=== PATIENT | male | born 1990 | race American Indian/Alaskan Native ===

== ENCOUNTER 2017-07-13 18:00 | Emergency (ER) | payer OTHER ==
[2017-07-13] MEDS ORDERED: TYLENOL #3 PO ONE (22:00)
[2017-07-13] MEDS ORDERED: ZOFRAN ODT PO ONE (22:00)
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
[2017-07-13 22:15] LABS: Basophils % (Auto) 0.5 % (0.0-1.8); Eosinophils # (Auto) 0.2 K/mm3 (0.0-0.4); Eosinophils % (Auto) 2.4 % (0.0-4.3); Hematocrit 43.4 % (35.5-45.6); Hemoglobin 14.4 gm/dl (11.8-15.2); Lymphocytes % (Auto) 27.5 % (13.4-35.0); Mean Corpuscular HGB Conc 33 % (32-34); Mean Corpuscular Hemoglobin 31 pg (28-32); Mean Corpuscular Volume 94 fl (84-94); Monocytes # (Auto) 0.4 K/mm3 (0.0-0.8); Monocytes % (Auto) 5.7 % (0.0-7.3); Platelet Count 202 K/mm3 (140-440); Red Blood Count 4.61 M/mm3 (3.65-5.03); Red Cell Distribution Width 13.5 % (13.2-15.2)
[2017-07-13 22:28] LABS: BUN/Creatinine Ratio 13; Blood Urea Nitrogen 8 mg/dL (9-20); Calcium 9.2 mg/dL (8.4-10.2); Hemolysis Index 149
--- NOTE | 2017-07-13 22:55 | XRay Report ---
FINAL REPORT PROCEDURE: XR CHEST ROUTINE 2V TECHNIQUE: PA and lateral chest radiographs were obtained. CPT 22515 HISTORY: dyspnea COMPARISON: No prior studies are available for comparison. FINDINGS: Heart: Normal. Mediastinum/Vessels: Normal. Lungs/Pleural space: No infiltrate, effusion, or pneumothorax. Bony thorax: No acute osseous abnormality. Other: IMPRESSION: No radiographic evidence of acute abnormality.
--- NOTE | 2017-07-13 23:55 | Emergency Department Report ---
HPI - General Chief Complaint: Dyspnea/Respdistress Time Seen by Provider: 07/13/17 22:03 ED Past Medical Hx - Past Medical History Previous Medical History?: Yes Hx Headaches / Migraines: Yes Hx Asthma: Yes - Surgical History Past Surgical History?: No - Social History Smoking Status: Never Smoker ED Review of Systems ROS: Stated complaint: CARBON MONOXIDE POISONING Other details as noted in HPI Physical Exam - Physical Exam Vital Signs: Vital Signs 07/13/17 18:14 Temperature 98.7 F Pulse Rate 85 Respiratory 16 Rate Blood Pressure 142/99 O2 Sat by Pulse 98 Oximetry ED Course Vital Signs 07/13/17 18:14 Temperature 98.7 F Pulse Rate 85 Respiratory 16 Rate Blood Pressure 142/99 O2 Sat by Pulse 98 Oximetry ED Medical Decision Making - Lab Data Result diagrams: 07/13/17 22:03 07/13/17 22:03 Critical care attestation.: If time is entered above; I have spent that time in minutes in the direct care of this critically ill patient, excluding procedure time. ED Disposition Condition: Stable Referrals: PRIMARY CARE, [Primary Care Provider] - 3-5 Days
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
[2017-07-14 04:03] VITALS: BP 116/74
== END 2017-07-14 04:00 | disposition home or self-care (01) ==
LOC: ED 18:00
DX: G43.909 Migraine, unspecified, not intractable, without status migrainosus (principal); R11.2 Nausea with vomiting, unspecified; R06.00 Dyspnea, unspecified; Z57.5 Occupational exposure to toxic agents in other industries
CPT/HCPCS: 36415; 71046; 80048; 82375; 85025; 99284; Q0162

== ENCOUNTER 2019-02-07 02:44 | Emergency (ER) | payer SELFPAY ==
[2019-02-07 02:55] VITALS: BP 132/87
--- NOTE | 2019-02-07 03:41 | Emergency Department Report ---
ED General Adult HPI - General Chief complaint: Earache Stated complaint: FOREIGN BODY IN LT EAR Source: patient Mode of arrival: Ambulatory Limitations: No Limitations - History of Present Illness Initial comments: Patient is a 28-year-old Afro-[place] male with a history of asthma and migraine headaches presents to the ED with complaint of acute onset painful left ear after an insect entered into the left ear canal about one hour ago. Patient states that the insect is still alive in the left ear and each time the insect moves around within the left ear canal the left ear pain gets worse. Patient denies dizziness, headache, chest pain, shortness of breath, hearing loss, cough or fever and chills. MD Complaint: LEFT EAR PAIN WITH FOREIGN BODY IN THE LEFT EAR -: Sudden, hour(s) (1) Location: face (left ear) Radiation: non-radiation Severity scale (0 -10): 4 Quality: aching Consistency: constant Improves with: none Worsens with: none Associated Symptoms: denies other symptoms. denies: confusion, chest pain, cough, diaphoresis, fever/chills, headaches, loss of appetite, malaise, nausea/vomiting, seizure, shortness of breath, syncope, weakness Treatments Prior to Arrival: none - Related Data Previous Rx's Medication Instructions Recorded Last Taken Type Benzonatate [Tessalon Perles] 100 mg PO Q8HR #24 capsule 07/14/17 Unknown Rx Butalb/Acetamin/Caff 50-325-40 1 tab PO Q6HR PRN #30 tab 07/14/17 Unknown Rx [Fioricet] predniSONE [Deltasone] 10 mg PO QDAY #4 tab 07/14/17 Unknown Rx Acetaminophen/Codeine [Tylenol 1 tab PO Q6H PRN #15 tab 09/15/18 Unknown Rx /Codeine # 3 tab] Cyclobenzaprine HCl [Flexeril 5 MG 5 mg PO BID PRN #10 tab 09/15/18 Unknown Rx TAB] predniSONE [Deltasone] 20 mg PO DAILY #15 tablet 09/15/18 Unknown Rx Allergies Allergy/AdvReac Type Severity Reaction Status Date / Time ibuprofen Allergy Unknown Verified 09/15/18 08:41 nut - unspecified Allergy Unknown Verified 02/07/19 02:54 shellfish derived Allergy Unknown Verified 02/07/19 02:54 ED Review of Systems ROS: Stated complaint: FOREIGN BODY IN LT EAR Other details as noted in HPI Constitutional: denies: chills, fever Eyes: denies: eye pain, eye discharge, vision change ENT: ear pain (left ear pain due to foreign body ). denies: throat pain Respiratory: denies: cough, shortness of breath, wheezing Cardiovascular: denies: chest pain, palpitations Endocrine: no symptoms reported Gastrointestinal: denies: abdominal pain, nausea, diarrhea Genitourinary: denies: urgency, dysuria Musculoskeletal: denies: back pain, joint swelling, arthralgia Skin: denies: rash, lesions Neurological: denies: headache, weakness, paresthesias Psychiatric: denies: anxiety, depression Hematological/Lymphatic: denies: easy bleeding, easy bruising ED Past Medical Hx - Past Medical History Previous Medical History?: Yes Hx Headaches / Migraines: Yes Hx Asthma: Yes - Surgical History Past Surgical History?: No - Social History Smoking Status: Never Smoker Substance Use Type: None - Medications Home Medications: Home Medications Medication Instructions Recorded Confirmed Last Taken Type Benzonatate [Tessalon Perles] 100 mg PO Q8HR #24 capsule 07/14/17 Unknown Rx Butalb/Acetamin/Caff 50-325-40 1 tab PO Q6HR PRN #30 tab 07/14/17 Unknown Rx [Fioricet] predniSONE [Deltasone] 10 mg PO QDAY #4 tab 07/14/17 Unknown Rx Acetaminophen/Codeine [Tylenol 1 tab PO Q6H PRN #15 tab 09/15/18 Unknown Rx /Codeine # 3 tab] Cyclobenzaprine HCl [Flexeril 5 MG 5 mg PO BID PRN #10 tab 09/15/18 Unknown Rx TAB] predniSONE [Deltasone] 20 mg PO DAILY #15 tablet 09/15/18 Unknown Rx ED Physical Exam - General Limitations: No Limitations General appearance: alert, in no apparent distress - Head Head exam: Present: atraumatic, normocephalic, normal inspection - Eye Eye exam: Present: normal appearance, PERRL, EOMI Pupils: Present: normal accommodation - ENT ENT exam: Present: normal exam, normal orophraynx, mucous membranes moist, TM's normal bilaterally, normal external ear exam, other (Foreign body in the right ear canal) - Neck Neck exam: Present: normal inspection, full ROM - Respiratory Respiratory exam: Present: normal lung sounds bilaterally. Absent: respiratory distress, wheezes, rales, rhonchi, chest wall tenderness, accessory muscle use, decreased breath sounds, prolonged expiratory - Cardiovascular Cardiovascular Exam: Present: regular rate, normal rhythm, normal heart sounds. Absent: systolic murmur, diastolic murmur, rubs, gallop - GI/Abdominal GI/Abdominal exam: Present: soft, normal bowel sounds. Absent: tenderness, guarding, rebound, hyperactive bowel sounds, organomegaly, mass - Rectal Rectal exam: Present: deferred - Extremities Exam Extremities exam: Present: normal inspection, full ROM, normal capillary refill - Back Exam Back exam: Present: normal inspection, full ROM. Absent: tenderness, muscle spasm, paraspinal tenderness, vertebral tenderness - Neurological Exam Neurological exam: Present: alert, oriented X3, CN II-XII intact, normal gait, reflexes normal - Psychiatric Psychiatric exam: Present: normal affect, normal mood - Skin Skin exam: Present: warm, dry, intact, normal color. Absent: rash ED Course Vital Signs 02/07/19 02:49 Temperature 97.8 F Pulse Rate 96 H Respiratory 18 Rate Blood Pressure 132/87 O2 Sat by Pulse 97 Oximetry - Foreign Body Removal Ear Location: ear canal (L) Foreign Body Suspected: insect If Insect Suspected: ear canal instilled w/ ot (normal saline flush) Foreign Body Removed: yes Foreign Body Removal Technique: forceps Tympanic Membrane Intact: Yes Patient Tolerated Procedure: well Complications: none ED Medical Decision Making - Medical Decision Making This is a 28-year-old -[place] male who presents to the ED with left ear pain after an insect entered into the left ear and got trapped in the left ear canal about one hour ago. In the ED, patient is alert and oriented 3 and is not in distress. The left ear was flushed with lidocaine solution and normal saline flushes. The single insect was successfully removed from the left ear. Patient tolerated the procedure well. Patient was discharged home and advised to take [id number] pain medication and advised follow-up with his primary care physician in 7-10 days for reevaluation or return to the ED immediately if symptoms get worse. - Differential Diagnosis left ear foreign body; left ear canal abrasion Critical care attestation.: If time is entered above; I have spent that time in minutes in the direct care of this critically ill patient, excluding procedure time. ED Disposition Clinical Impression: Foreign body in left ear, initial encounter Disposition: TO HOME OR SELFCARE Is pt being admited?: No Does the pt Need Aspirin: No Condition: Stable Instructions: Ear Foreign Body (ED) Additional Instructions: Take regular over the counter pain medications as needed for pain. Follow up with your Primary Care Physician in 7-10 days for reevaluation. Return to the ED immediately if symptoms get worse. Referrals: PRIMARY CARE, [Primary Care Provider] - 3-5 Days Time of Disposition: 03:51 Print Language: LITHUANIAN
[2019-02-07] MEDS ORDERED: MECLIZINE 25 MG TAB PO ONE (03:44)
[2019-02-07] MEDS ORDERED: ACETAMINOPHEN 500 MG TAB PO ONE (03:49)
== END 2019-02-07 05:57 | disposition home or self-care (01) ==
LOC: ED 02:44
DX: T16.2XXA Foreign body in left ear, initial encounter (principal); X58.XXXA Exposure to other specified factors, initial encounter; Y93.89 Activity, other specified; Y92.89 Other specified places as the place of occurrence of the external cause; Y99.8 Other external cause status; J45.909 Unspecified asthma, uncomplicated; G43.909 Migraine, unspecified, not intractable, without status migrainosus; Z79.899 Other long term (current) drug therapy; Z91.013 Allergy to seafood
CPT/HCPCS: 99282